=== PATIENT | male | born 1945 | race Caucasian/White ===

== ENCOUNTER 2023-08-05 10:18 | Inpatient (IN) | payer MEDICARE ==
[~2023-08-05] VITALS: Ht 172.7 cm; Wt 86.2 kg
[2023-08-05] MEDS ORDERED: IV NORMAL SALINE 1000 ML BAG IV ONE (10:30)
[2023-08-05] MEDS ORDERED: ASPI81TA31 PO (10:34)
[2023-08-05] MEDS ORDERED: AMLO5TAB4 PO (10:47)
[2023-08-05] MEDS ORDERED: OMEG10006 PO (10:47)
[2023-08-05] MEDS ORDERED: MULT-594 PO (10:47)
[2023-08-05] MEDS ORDERED: METO200T49 PO (10:47)
[2023-08-05] MEDS ORDERED: AZIL40TA PO (10:47)
[2023-08-05] MEDS ORDERED: NATE120T6 PO (10:47)
[2023-08-05] MEDS ORDERED: ROSU40TA PO (10:47)
[2023-08-05] MEDS ORDERED: DULA1.5P SQ (10:47)
[2023-08-05] MEDS ORDERED: LEVO125T PO (10:47)
[2023-08-05 11:21] LABS: BASOPHILS # (AUTO) 0.2 K/UL (0.0-0.2); BASOPHILS % (AUTO) 1.7 % (0.0-2.0); EOSINOPHILS % (AUTO) 0.4 % (0.0-7.0); LYMPHOCYTES % (AUTO) 11.4 % (20.5-51.5); MEAN CORPUSCULAR HEMOGLOBIN 30.7 uug (23.8-33.4); MEAN CORPUSCULAR HGB CONC 32 g/dL (32.5-36.3); MEAN CORPUSCULAR VOLUME 95.2 fL (73.0-96.2); MONOCYTES # (AUTO) 0.4 K/uL (0.1-1.30); MONOCYTES % (AUTO) 4.5 % (0.0-11.0); NEUTROPHILS # (AUTO) 7.5 K/uL (1.8-8.9); PLATELET COUNT (AUTO) 161 K/uL (152-348); WHITE BLOOD COUNT (AUTO) 9.1 K/uL (3.6-10.2)
[2023-08-05] MEDS ORDERED: PANTOPRAZOLE SODIUM 40 MG VIAL IV ONE (11:30)
[2023-08-05] MEDS ORDERED: PANTOPRAZOLE SODIUM 40 MG VIAL ONE (11:36)
[2023-08-05 11:50] LABS: RED BLOOD CELL COUNT(AUTO) 1.44 MIL/uL (4.06-5.63)
[2023-08-05 11:56] LABS: DIFFERENTIAL COMMENT 1; HEMATOCRIT 13.7 % (36.7-47.1); HEMOGLOBIN 4.4 g/dL (12.5-16.3)
[2023-08-05 12:14] LABS: CALCIUM 7.9 mg/dL (8.5-10.1); CARBON DIOXIDE 15 mmol/L (21-32); CHLORIDE 110 mmol/L (98-107); CREATININE 4.1 mg/dL (0.6-1.3); GLUCOSE 180 mg/dL (74-106); POTASSIUM 5.4 mmol/L (3.5-5.1); SODIUM SERUM 139 mmol/L (136-145)
[2023-08-05 12:16] LABS: UREA NITROGEN, BLOOD 109 mg/dL (7-18)
[2023-08-05 12:23] LABS: ALANINE AMINOTRANSFERASE 34 U/L (16-63); ALBUMIN 2.4 g/dL (3.4-5.0); ALKALINE PHOSPHATASE 33 U/L (50-136); ASPARTATE AMINOTRANSFERASE 21 U/L (15-37); BILIRUBIN,TOTAL 0.2 mg/dL (0.2-1.0)
[2023-08-05 12:25] LABS: BILIRUBIN,DIRECT 0.1 mg/dL (0.0-0.2)
[2023-08-05] MEDS ORDERED: MORPHINE SULFATE 2 MG/1 ML DISP.SYRIN IV PRN (17:15)
[2023-08-05] MEDS ORDERED: PANTOPRAZOLE SODIUM 40 MG VIAL IV SCH (17:15)
[2023-08-05] MEDS ORDERED: ACETAMINOPHEN 650 MG SUPP.RECT RC PRN (17:15)
[2023-08-05] MEDS ORDERED: ONDANSETRON 4 MG/2 ML VIAL IV PRN (17:15)
[2023-08-05] MEDS ORDERED: IV D5 1/2 NS 1000 ML 1,000 ML IV PRN (17:15)
[2023-08-05 17:28] LABS: BASOPHILS % (MANUAL) 0 % (0-2); EOSINOPHILS % (MANUAL) 0 % (0-8); LYMPHOCYTES % (MANUAL) 15 % (20-40); MONOCYTES % (MANUAL) 5 % (2-10); NEUTROPHILS % (MANUAL) 80 % (42-75)
[2023-08-05 20:00] VITALS: BP 139/61; TEMP 97.8; O2SAT 98
[2023-08-05 20:20] LABS: HEMATOCRIT 18.5 % (36.7-47.1); HEMOGLOBIN 6.1 g/dL (12.5-16.3)
[2023-08-05 20:48] VITALS: BP 139/61; TEMP 97.8
[2023-08-05 21:11] VITALS: BP 130/53; TEMP 98.5
[2023-08-05 21:42] VITALS: BP 132/54; TEMP 98.4
[2023-08-05 22:42] VITALS: BP 112/51; TEMP 98.6
[2023-08-05 23:42] VITALS: BP 107/51; TEMP 98.2
[2023-08-06] VITALS (9 sets, daily range): BP systolic 107–151; BP diastolic 51–67; TEMP 98–98.5; O2SAT 96–98
[2023-08-06 07:23] LABS: BASOPHILS % (AUTO) 0.4 % (0.0-2.0); EOSINOPHILS # (AUTO) 0.2 K/uL (0.0-0.7); EOSINOPHILS % (AUTO) 2.6 % (0.0-7.0); LYMPHOCYTES % (AUTO) 16.7 % (20.5-51.5); MEAN CORPUSCULAR HEMOGLOBIN 31.8 uug (23.8-33.4); MEAN CORPUSCULAR HGB CONC 34 g/dL (32.5-36.3); MONOCYTES # (AUTO) 0.5 K/uL (0.1-1.30); MONOCYTES % (AUTO) 8.3 % (0.0-11.0); NEUTROPHILS # (AUTO) 4.4 K/uL (1.8-8.9); PLATELET COUNT (AUTO) 153 K/uL (152-348); RED CELL DISTRIBUTION WIDTH 17.1 % (12.1-16.2); WHITE BLOOD COUNT (AUTO) 6.1 K/uL (3.6-10.2)
[2023-08-06 08:20] LABS: THYROID STIMULATING HORMONE 6.959 mIU/mL (0.358-3.740)
[2023-08-06 08:26] LABS: DIFFERENTIAL COMMENT 1; HEMATOCRIT 19.7 % (36.7-47.1); RED BLOOD CELL COUNT(AUTO) 2.11 MIL/uL (4.06-5.63)
[2023-08-06 08:27] LABS: HEMOGLOBIN 6.7 g/dL (12.5-16.3)
[2023-08-06 08:28] LABS: ALANINE AMINOTRANSFERASE 33 U/L (16-63); ALBUMIN 2.5 g/dL (3.4-5.0); ALKALINE PHOSPHATASE 33 U/L (50-136); ASPARTATE AMINOTRANSFERASE 19 U/L (15-37); BILIRUBIN,TOTAL 0.4 mg/dL (0.2-1.0); CALCIUM 8.3 mg/dL (8.5-10.1); CARBON DIOXIDE 16 mmol/L (21-32); CHLORIDE 115 mmol/L (98-107); CHOLESTEROL 87 mg/dL (<200); CREATININE 3.8 mg/dL (0.6-1.3); GLUCOSE 150 mg/dL (74-106); HDL CHOLESTEROL 27 mg/dL (40-60); MAGNESIUM 1.9 mg/dL (1.8-2.4); PHOSPHOROUS 3.8 mg/dL (2.5-4.9); POTASSIUM 4.6 mmol/L (3.5-5.1); SODIUM SERUM 142 mmol/L (136-145); TOTAL PROTEIN, SERUM 5.1 g/dL (6.4-8.2); TRIGLYCERIDES 304 MG/DL (30-150)
[2023-08-06 08:37] LABS: UREA NITROGEN, BLOOD 93 mg/dL (7-18)
[2023-08-06 12:01] LABS: NEUTROPHILS % (MANUAL) 68 % (42-75)
[2023-08-06 12:02] LABS: ANISOCYTOSIS 2+; EOSINOPHILS % (MANUAL) 2 % (0-8); LYMPHOCYTES % (MANUAL) 20 % (20-40); MONOCYTES % (MANUAL) 10 % (2-10); PLATELET ESTIMATE ADEQUATE
[2023-08-06 14:29] LABS: *BILIRUBIN,URIN NEGATIVE (NEGATIVE); *CLARITY,URINE CLEAR (CLEAR); *COLOR,URINE YELLOW (YELLOW); *KETONES,URINE NEGATIVE (NEGATIVE); *PROTEIN,URINE 2+ (NEGATIVE); *UROBILINOGEN,URINE 0.2 E.U./dl (NORMAL); LEUKOCYTE ESTERASE ,URINE NEGATIVE (NEGATIVE); NITRITE, URINE NEGATIVE (NEGATIVE); PH,URINE 5.5 (5.0-8.0); UGLUCOSE NEGATIVE (NEGATIVE)
[2023-08-06 14:30] LABS: *BLOOD, URINE NEGATIVE (NEGATIVE)
[2023-08-06 14:41] LABS: BACTERIA,URINE NONE SEEN /HPF (NONE SEEN); SQUAMOUS EPITHELIAL CELL,UR NONE SEEN /HPF (NONE SEEN); WBC,URINE 0-3 /HPF (0-3)
[2023-08-06 15:43] LABS: HEMATOCRIT 24.2 % (36.7-47.1)
== END 2023-08-06 17:15 | disposition home or self-care (01) | DRG 377 ==
LOC: ER 10:18 → TELE3 17:15
PROVIDERS: ADMIT Internal Medicine; ATTEND Internal Medicine
PROC: 30233N1 Transfusion of Nonautologous Red Blood Cells into Peripheral Vein, Percutaneous Approach (ICD-10-PCS; principal; 2023-08-05)
DX: K27.4 Chronic or unspecified peptic ulcer, site unspecified, with hemorrhage (principal); E43 Unspecified severe protein-calorie malnutrition; N17.0 Acute kidney failure with tubular necrosis; K86.1 Other chronic pancreatitis; D50.0 Iron deficiency anemia secondary to blood loss (chronic); E88.09 Other disorders of plasma-protein metabolism, not elsewhere classified; E03.9 Hypothyroidism, unspecified; E78.5 Hyperlipidemia, unspecified; E11.51 Type 2 diabetes mellitus with diabetic peripheral angiopathy without gangrene; Z53.29 Procedure and treatment not carried out because of patient's decision for other reasons; E11.22 Type 2 diabetes mellitus with diabetic chronic kidney disease; N18.9 Chronic kidney disease, unspecified; K80.20 Calculus of gallbladder without cholecystitis without obstruction; E66.9 Obesity, unspecified; N20.0 Calculus of kidney; N28.1 Cyst of kidney, acquired; F17.210 Nicotine dependence, cigarettes, uncomplicated; I70.8 Atherosclerosis of other arteries; Z87.11 Personal history of peptic ulcer disease; I71.40 Abdominal aortic aneurysm, without rupture, unspecified; I13.10 Hypertensive heart and chronic kidney disease without heart failure, with stage 1 through stage 4 chronic kidney disease, or unspecified chronic kidney disease; Z95.820 Peripheral vascular angioplasty status with implants and grafts; Z79.890 Hormone replacement therapy; Z68.28 Body mass index [BMI] 28.0-28.9, adult; Z95.2 Presence of prosthetic heart valve; Z86.79 Personal history of other diseases of the circulatory system
CPT/HCPCS: 36415; 70030-TC; 71045; 83605; 83735; 84100; 84443; 84484; 85018; 85025; 85730; 86850; 86900; 86901; 86920; 87040; 93005; A4663; C9113; G0378; J7040; P9016